=== PATIENT | female | born 1975 | race Two or more races ===

== ENCOUNTER 2020-01-23 08:09 | Emergency (ER) | payer OTHER ==
[~2020-01-23] VITALS: Ht 154.9 cm; Wt 79.0 kg
[2020-01-23] MEDS ORDERED: IBUPROFEN 600MG TABLET PO ONE (09:15)
[2020-01-23] MEDS ORDERED: LIDOCAINE HCL 1% 20ML VIAL (Pyxis) INJ INFIL ONE (09:15)
[2020-01-23 10:30] VITALS: BP 132/65
[2020-01-23] MEDS ORDERED: BACITRACIN ZINC OINT UDPKT TOP ONE (10:30)
== END 2020-01-23 10:38 | disposition home or self-care (01) ==
LOC: ER 08:09
DX: S61.411A Laceration without foreign body of right hand, initial encounter (principal); X58.XXXA Exposure to other specified factors, initial encounter; Y93.89 Activity, other specified; Y92.89 Other specified places as the place of occurrence of the external cause; Y99.8 Other external cause status
CPT/HCPCS: 12001; 73130; 99283; J3490